=== PATIENT | female | born 1950 | race Caucasian/White ===

== ENCOUNTER 2017-06-12 07:45 | Day surgery (SDC) | payer MEDICARE ==
[~2017-06-12] VITALS: Ht 147.3 cm; Wt 93.2 kg
[~2017-06-12 07:45] MED LIST: ATEN1TAB75 PO; CLON-352 PO; CLOP75 PO; EZET10 PO; HYDR12.56 PO; LIPI80TA16 PO; LISI2.5T3 PO; NITR0.4S SL; POTA-243 PO; RANI150 PO; TYLE500T PO
[2017-06-12 08:21] VITALS: BP 141/76; PULSE 72; RESP 18; TEMP 98.4; O2SAT 96
[2017-06-12] MEDS ORDERED: ATEN50TA PO (08:33)
[2017-06-12] MEDS ORDERED: FURO1TAB60 PO (08:34)
[2017-06-12] MEDS ORDERED: VITA100018 PO (08:34)
[2017-06-12] MEDS ORDERED: ACET-822 PO (08:34)
[2017-06-12] MEDS ORDERED: NITR0.4S SL (08:34)
[2017-06-12] MEDS ORDERED: RANI150C PO (08:34)
[2017-06-12] MEDS ORDERED: CLOP75TA PO (08:34)
[2017-06-12] MEDS ORDERED: CLON0.1T PO (08:34)
[2017-06-12] MEDS ORDERED: POTA1TAB4 PO (08:34)
[2017-06-12] MEDS ORDERED: ISOS30TA3 PO (08:34)
[2017-06-12] MEDS ORDERED: OCUVCAP2 PO (08:34)
[2017-06-12] MEDS ORDERED: ROSU1TAB10 PO (08:34)
[2017-06-12] MEDS ORDERED: EZET1TAB8 PO (08:34)
[2017-06-12] MEDS ORDERED: LISI40TA PO (08:34)
[2017-06-12] MEDS ORDERED: NS 1000P @30 MLS/HR (KVO) IV SCH (09:00)
[2017-06-12] MEDS ORDERED: HEPARIN-NS/PF INJ 500 ML ONE (09:10)
[2017-06-12] MEDS ORDERED: IOHEXOL 350 MG/ML 100 ML BTL (for Cath Lab) OTHER ONE (09:15)
[2017-06-12] MEDS ORDERED: MIDAZOLAM HCL 2 MG/2 ML VIAL ONE (09:32)
[2017-06-12] MEDS ORDERED: NITROGLYCERIN 400 MCG/SPRAY 4.9 GM BOTTLE SL ONE (09:58)
[2017-06-12] MEDS ORDERED: SODIUM CHLOR 0.9% 1000 ML INJ 1,000 ML IV SCH (10:22)
--- NOTE | 2017-06-12 10:23 | CATHPROC ---
[facility] HIS Report Study Information Study Number Admission Scheduled Start Study Start [id number] Jun 12 2017 7:45AM 06/12/2017 Jun 12 2017 9:16AM Study Type Kinde Service Left/Possible PCI Cardiac Catheterization Admit Source Facility Department Other [facility] Supervisor Physician and Clinical Staff Initial Evgeny Armstrong Cat Skinnersarabjit Miller RN, Astrid Raymundo RN Cat SkinnerAndrzej Walls RN Other Paul PETTIT, Jameson Recorder Rebekah Kern,CORRESPONDENCE SECTION SUPERVISOR TECH2 Scrub Kin Cardona,RT(R) Procedures Performed Procedure Location (Site) Vessel Name Angiogram LV AO Arch (A1) Aorta Angiogram LV LV Ventricle Coronary Angiograms LCA Left Coronary Coronary Angiograms RCA Right Coronary Coronary Angiograms MCCLAIN-LAD Left Coronary Coronary Angiograms SVG-DIAG Left Coronary Coronary Angiograms SVG-LCX CIRC Coronary Angiograms Gft. Stump 1 SVG Graft Equipment Time Wholesale Representative Description Size Mfg Part Number Used/Scraped TRANSDUCER, TRUWAVE [id number] 09:41 MCG[employer] ADLER * Used W/STOCKCOCK *[id number] [id number] *[id number] 534-620T *[id number] [id number] *[id number] 534-650S *[id number] 534-650S *[id number] 534-670T *[id number] 09:41 [employer] INDUSTRIES PACK, CCL CUSTOM * Used *[id number] 09:41 [employer] PACER PEN, SKIN DUAL W/ RULER * Used *[id number] 09:41 [employer] MEDICAL SHEATH, FR6.5 PRELUDE 11CM FR 6.5 038ACT Used *[id number] 09:41 [employer] MEDICAL WIRE, 3MMJ .035 180CM 180CM Used *[id number] 09:41 [employer] MANIFOLD, 4 PORT * Used *[id number] 09:41 [employer] OMNIPAQUE, 350 MG, 100ML 100ML [id number] Used 10:04 [employer] OMNIPAQUE, 350 MG, 50ML 50ML [id number] Used [id number] 09:41 [employer],WARM AIR CCL * Used *[id number] History: Current Medications Medication Dosage/Unit Route Frequency Last Date/Time Taken Beta Briseida CLONIDINE PLAVIX VITAMIN D LASIX Imdur K-Dur LISINOPRIL NTG SL CRESTOR ZANTAC History: Allergies Allergy Reaction Aspirin History: Risk Factors Family History of Hypertension Dyslipidemia Previous PR Previous Heart Failure Premature CAD Yes Yes No Yes Yes Prior Valve Prior PCI Prior PCIDate Prior CABG Prior CABGDate Surgery No Yes 07/04/2012 Yes 08/19/1998 Cerebrovascular Peripheral Artery Chronic Lung On Dialysis Diabetes Disease Disease Disease No Yes No No No History: Symptoms/Diagnosis Selection Items Chest pain SOB History: CV Disease Selection Items Known CAD PR History: Stress Tests Stress or Imaging Studies Performed No History: Other Disease Selection Items CAD CHF Gerd History: Other Current Smoker Method No Cigarettes Labs Hgb (g/dl) Hct (%) WBC (l/cumm) Platelets (thousands) 11.60-17.00 35.00-51.00 4.00-11.00 150.00-450.00 9.8 30.7 7.2 211 Glucose (mg/dl) BUN (mg/dl) Creatinine (mg/dl) BUN:Creatinine (1:x) 74.00-106.00 7.00-18.00 0.50-1.30 10.00-20.00 89 14 0.7 20 Na (meq/l) K (meq/l) 136.00-145.00 3.50-5.10 140 4.5 PT (sec) INR (PTT:PT) 9.80-11.60 0.90-1.10 10.7 1.1 CPK-MB (ng/ML) 0.50-3.60 Not Drawn Medication Medication Total Dose (Bolus/Oral) Medication Total Dosage/Unit 1% XYLOCAINE 20 mL NITROGLYCERIN S/L 1.24 mg VERSED 2 mg Medications (Bolus/Oral) Medication Time Given Dosage/Unit Administered By Reason VERSED 06/12/2017 9:36:33 AM 2 mg Andrzej Cali Patient arrived on 2 mg VERSED given by Adnrzej Cali RN in Left Antecubital via Peripheral IV. Ord ered by Evgeny Maria. 1% XYLOCAINE 06/12/2017 9:37:37 AM 20 mL Evgeny Maria Patient arrived on 20 mL 1% XYLOCAINE given by Evgeny Maria in Right Groin via Subcutaneous. Order ed by Evgeny Maria. NITROGLYCERIN S/L 06/12/2017 9:58:36 AM 0.4 mg Andrzej Cali 0.4 mg NITROGLYCERIN S/L given in lab by Andrzej Cali, WILVER via Sublingual. Ordered by Rajendra Maria NITROGLYCERIN S/L 06/12/2017 10:07:42 AM 0.8 mg Andrzej Cali 0.8 mg NITROGLYCERIN S/L given in lab by Andrzej Cali, WILVER via Sublingual. Ordered by Rajendra Maria NITROGLYCERIN S/L 06/12/2017 10:16:00 AM 0.04 mg Andrzej Cali 0.04 mg NITROGLYCERIN S/L given in lab by Andrzej Cali, WILVER via Sublingual. Ordered by Naeem Maria Medication (Drip) Medication Time Given Dosage/Unit Concentration/Unit Diluent (ml) Solution IV Solutions 06/12/2017 9:18:15 AM 0 mL (IV) 500 NaCl .9 Patient arrived on IV Solutions in Left Antecubital via Peripheral IV. Pump/Drip Flow = 20 ml/hr usin g NaCl .9. Initial Case Assessment Cardiovascular HR Rhythm NIBP Chest Pain 70 sr 159/71 0 Circulatory - Right Pulses Dorsalis Pedis Femoral 2 1 Scale (0,1,2,3,4,d) Circulatory - Left Pulses Dorsalis Pedis Femoral 2 1 Scale (0,1,2,3,4,d) Neurological State Oriented to time-place- Alert Moves all extremities person Respiration - General Respiration Rate SpO2 (%) (B/min) 10 97 Final Case Assessment Cardiovascular HR Rhythm NIBP Chest Pain 72 sr 129/67 8 Circulatory - Right Pulses Dorsalis Pedis Femoral 2 1 Scale (0,1,2,3,4,d) Circulatory - Left Pulses Dorsalis Pedis Femoral 2 1 Scale (0,1,2,3,4,d) Neurological State Oriented to time-place- Alert Moves all extremities person Respiration - General Respiration Rate SpO2 (%) (B/min) 16 93 Chronological Log Time Study Chronological Log 9:15:05 Patient arrived via Bed. 9:15:09 Patient Name, D.O.B, / Armband Verified By R.N. 9:16:19 Consent signed by the physician and the patient and verified by the [facility] Department Supervisor staff. 9:16:20 Verbal Stimulation=2 Physical Stimulation=2 Airway=2 Respiration=2 TOTAL=8. (0=absent, 1=boggs ited, 2=present) 9:16:20 Pre-op and post- op instructions given; patient acknowledges understanding of instructions. 9:17:50 Presedation assessment performed by [facility] Department Supervisor RN. 9:17:52 Patient has been NPO for More than 6Hrs. 9:17:54 Skin Breakdown-none 9:17:56 Sanjeev Prominences Protected 9:17:59 A # 20 IV was noted in the Antecubital (left). Grade = patent 9:18:15 Patient arrived on IV Solutions in Left Antecubital via Peripheral IV. Pump/Drip Flow = 20 m l/hr using NaCl .9. 9:18:46 History and physical on the chart or being dictated. Vitals capture started with the following parameters, Patient=Adult, Interval=5 min, Initial Pre ewdqs=039 mmHg, 9:18:48 Deflation Rate=5 mmHg 9:19:26 HR=72 bpm, OZVF=863/71 mmhg, SpO2=97.0 %, Resp=15 B/min, Pain=0, Agustina=10, Lozano=2 Assessment: Initial Case, HR=70 BPM, Rhythm=sr, JDLD=592/71 mmhg, Chest Pain=0 Right Pulses: Morales Ped=2, Femoral=1 9:20:29 Left Pulses: Morales Ped=2, Femoral=1 Neurological: State=Alert, Ox3, BARRERA Respiration: Resp=10 B/min, SpO2=97 % 9:20:50 Reference ECG taken 9:24:26 MD arrived. 9:24:29 HR=68 bpm, GJXP=662/71 mmhg, SpO2=96.0 %, Resp=20 B/min, Agustina=10 9:26:21 Bilateral groins prepped with 2% chlorhexidine, and draped after a 3 min. waiting time. 9:29:28 HR=70 bpm, OTLI=504/72 mmhg, SpO2=96.0 %, Resp=21 B/min 9:32:10 Pressure channel 1 zeroed. 9:34:29 HR=69 bpm, OWNK=215/73 mmhg, SpO2=95.0 %, Resp=19 B/min, Pain=0, Agustina=10, Lozano=2 Patient arrived on 2 mg VERSED given by Andrzej Cali, WILVER in Left Antecubital via Peripheral IV . Ordered by Crow 9:36:33 Evgeny. Time Out. Correct patient, correct procedure,correct physician, power injector not loaded with c ontrast with surgical 9:37:07 team present. Time Out Concurred by MD and individual staff in procedure 9:37:36 Case Start Patient arrived on 20 mL 1% XYLOCAINE given by Evgeny Maria in Right Groin via Subcutaneous. Ordered by 9:37:37 Evgeny Maria. 9:39:30 HR=69 bpm, WPEI=719/64 mmhg, SpO2=93.0 %, Resp=21 B/min, Agustina=10 9:40:28 Access site was Right Femoral Artery. 9:40:34 A SHEATH, FR6.5 PRELUDE 11CM FR 6.5 was advanced into the Fem Art (right) using the Percutan eous technique. A JL 4.0 INFINITI CATHETER FR 6 was advanced over a wire. OMNIPAQUE, 350 MG, 100ML 100ML was use d for 9:41:06 injections. Recorded Pressure: Ao, HR=69, Condition=Condition 1 9:41:48 (Aorta) Ao 116/50/74 9:43:08 The LCA was injected and visualized at various angles. OMNIPAQUE, 350 MG, 100ML 100ML used. 9:44:13 Catheter was removed A JR 4.0 INFINITI CATHETER FR 6 was advanced over a wire. OMNIPAQUE, 350 MG, 100ML 100ML was use d for 9:44:14 injections. 9:44:25 HR=67 bpm, HFNJ=214/55 mmhg, SpO2=92 %, Resp=18 B/min 9:45:11 The RCA was injected and visualized at various angles. OMNIPAQUE, 350 MG, 100ML 100ML used. 9:46:29 The SVG-DIAG was injected and visualized at various angles. OMNIPAQUE, 350 MG, 100ML 100ML u sed. 9:46:58 The Gft. Stump 1 was injected and visualized at various angles. contrast used. 9:47:18 The MCCLAIN-LAD was injected and visualized at various angles. OMNIPAQUE, 350 MG, 100ML 100ML u sed. 9:49:46 Catheter was removed A RCB INFINITI CATHETER FR 6 was advanced over a wire. OMNIPAQUE, 350 MG, 100ML 100ML was used for 9:49:47 injections. 9:50:07 HR=71 bpm, QOSX=598/58 mmhg, SpO2=92 %, Resp=19 B/min 9:52:14 Catheter was removed A 3DRC INFINITI CATHETER FR 6 was advanced over a wire. OMNIPAQUE, 350 MG, 100ML 100ML was used for 9:52:15 injections. 9:53:50 Catheter was removed 9:54:27 HR=71 bpm, CZWQ=279/61 mmhg, SpO2=93.0 %, Resp=18 B/min A JR 4.0 INFINITI CATHETER FR 6 was advanced over a wire. OMNIPAQUE, 350 MG, 100ML 100ML was us ed for 9:57:09 injections. 9:58:30 Patient complaining of chest pain 9:58:36 0.4 mg NITROGLYCERIN S/L given in lab by Andrzej Cali RN via Sublingual. Ordered by Evgeny Hercules ams. 9:59:09 The SVG-LCX was injected and visualized at various angles. OMNIPAQUE, 350 MG, 100ML 100ML us ed. 9:59:26 HR=70 bpm, BZCT=423/56 mmhg, SpO2=92.0 %, Resp=18 B/min 10:02:03 Catheter was removed A PIGTAIL STR INFINITI CATHETER FR 6 was advanced over a wire. OMNIPAQUE, 350 MG, 100ML 100ML w as used for 10:02:06 injections. 10:03:30 The AO Arch (A1) was injected at 12 cc/sec for a total of 40. OMNIPAQUE, 350 MG, 50ML 50ML used. Recorded Pressure: LV, HR=72, Condition=Condition 1 10:04:01 (Left Ventricle) LV 125/9/20 10:04:30 HR=71 bpm, TOFZ=474/52 mmhg, SpO2=90.0 %, Resp=33 B/min 10:05:45 The LV was injected at 12 cc/sec for a total of 30. OMNIPAQUE, 350 MG, 100ML 100ML used. Recorded Pressure: LV, Ao, HR=68, Condition=Condition 1 10:06:12 (Left Ventricle) LV 134/7/17, (Aorta) Ao 128/50/79 10:07:02 Patient complaining of chest pain 10:07:22 Catheter was removed 10:07:42 0.8 mg NITROGLYCERIN S/L given in lab by Andrzej Cali RN via Sublingual. Ordered by Evgeny Hall. 10:09:22 HR=66 bpm, PRED=111/67 mmhg, SpO2=93.0 %, Resp=24 B/min 10:11:23 Case End Assessment: Final Case, HR=72 BPM, Rhythm=sr, JPEA=008/67 mmhg, Chest Pain=8 Right Pulses: Morales Ped=2, Femoral=1 10:13:32 Left Pulses: Morales Ped=2, Femoral=1 Neurological: State=Alert, Ox3, BARRERA Respiration: Resp=16 B/min, SpO2=93 % 10:14:26 HR=71 bpm, SRFU=302/68 mmhg, SpO2=93.0 %, Resp=16 B/min 10:15:14 Sheath(s) left in place, will be removed in Holding Area 10:15:17 Sterile dressing applied to site 10:15:19 No case complications noted. 10:15:23 Cine recording checked. 10:15:28 Bedside Report will be given. 10:16:00 0.04 mg NITROGLYCERIN S/L given in lab by Andrzej Cali RN via Sublingual. Ordered by Evgeny Reno. 10:17:57 Patient moved to bed 10:19:08 Patient transported to DOCU End Study - Contrast Media Used In Study Contrast Total Opened (mL) Total Used (mL) Total Wasted (mL) Omnipaque 175 175 0 End Study - Maximum Contrast Load Max Contrast Load (mL) 665.6 End Study - Radiation Exposure Fluoro Time (minutes) 9.6 End Study - Patient Disposition Complications Transferred To No Telemetry Bed
[2017-06-12] MEDS ORDERED: LORazepam 2 MG/ML VIAL IV PRN (10:30)
[2017-06-12] MEDS ORDERED: SODIUM CHLOR 0.9% 250 ML INJ 250 ML IV PRN (10:30)
[2017-06-12] MEDS ORDERED: MISC INFORMATION XX ONE (10:30)
[2017-06-12] MEDS ORDERED: LIDOCAINE HCL 1% 50 ML VIAL INFIL PRN (10:30)
[2017-06-12] MEDS ORDERED: ATROPINE SULFATE 1 MG/ML VIAL IV PRN (10:30)
[2017-06-12] MEDS ORDERED: ONDANSETRON HCL 4 MG/2 ML VIAL IV PRN (10:30)
[2017-06-12] MEDS ORDERED: BACITRACIN OINT 0.9 GM PKT TOP ONE (11:30)
--- NOTE | 2017-06-12 12:33 | MA ---
cc: MARYELLEN MARTINEZ MD DATE: 06/12/2017 PROCEDURE Cardiac catheterization. PROCEDURAL STATEMENTS The patient was prepped and draped in the usual fashion. A 6 sheath was inserted percutaneously in the right femoral artery. Coronary angiography was done with Kirk preformed catheters. Left ventriculography and aortography was done with a pigtail catheter. RESULTS HEMODYNAMICS Aortic pressure was 125/80. Left ventricular end-diastolic pressure was 10. There is no gradient across the aortic valve. CORONARY ANGIOGRAPHY The left main coronary demonstrated a high-grade stenosis of approximately 85-90%. The left anterior descending artery was totally occluded just after the takeoff of the first septal ob gyn physician assistant complex. A large septal ob gyn physician assistant was present which was widely patent. The circumflex artery descended in the AV groove and demonstrated luminal irregularities but no high-grade stenoses were seen. Collateralization of the distal right coronary was seen from the circumflex system. The right coronary itself was totally occluded, essentially at the aorta. A vein graft to the right coronary was also totally occluded. A vein graft to the first diagonal branch was patent, although a somewhat small graft. The internal mammary artery graft to the LAD was widely patent. AORTOGRAPHY Aortography demonstrated a totally occluded right coronary and right coronary graft, plus 2-3 aortic insufficiency was present. LEFT VENTRICULOGRAPHY Left ventriculography demonstrated inferior wall hypokinesis with preserved left ventricular ejection fraction of 60-65%. +3 mitral regurgitation was seen. CONCLUSIONS The patient demonstrates rather complex valvular disease with high-grade stenosis of the ostial left main. Consultation with the surgical service will be done for possible valve repair or replacement and bypass grafting. This may be complicated in rather poor targets in the right coronary system. Further recommendations after consultation with cardiovascular surgery. MD KARL Hernandez/MITCH /10:30 AM /12:29 PM
[2017-06-12] MEDS ORDERED: CEFAZOLIN INJ 500 MG in SODIUM CHLORIDE 0.9% IRR BTL 500 ML IRRIGATION SCH (14:15)
[2017-06-12] MEDS ORDERED: ceFAZolin 2 GM PREMIX 50 ML IV SCH (14:15)
--- NOTE | 2017-06-12 15:13 | PD.CAR.PN ---
CVT Progress Note Subjective/Hospital Course: sts data discussed with pt RISK SCORES About the STS Risk Calculator Procedure: CAB Only Risk of Mortality: 0.438% Morbidity or Mortality: 8.681% Long Length of Stay: 2.462% Short Length of Stay: 62.565% Permanent Stroke: 0.49% Prolonged Ventilation: 6.045% DSW Infection: 0.45% Renal Failure: 1.168% Reoperation: 3.161% Objective: Vital Signs Date Time Temp Pulse Resp B/P Pulse Ox O2 Delivery O2 Flow Rate FiO2 06/12/17 10:55 96 Room Air 06/12/17 08:21 98.4 72 18 141/76 96 (Lorena Osman) Subjective/Hospital Course: The above STS calculation does not reflect the procedure she needs which is a REDO sternotomy for AVR/CABG. The revised calculation is: RISK SCORES About the STS Risk Calculator Procedure: AV Replacement + CAB Risk of Mortality: 4.944% Morbidity or Mortality: 26.292% Long Length of Stay: 11.277% Short Length of Stay: 21.24% Permanent Stroke: 2.385% Prolonged Ventilation: 20.395% DSW Infection: 0.818% Renal Failure: 6.935% Reoperation: 9.08% (Dahlia Reese MD) Plan: Risk discussed with patient and she agrees to proceed. (Dahlia Reese MD) Lorena Osman Jun 12, 2017 15:13 Dahlia Reese MD Jun 12, 2017 17:44
--- NOTE | 2017-06-12 15:29 | RADRPT ---
EXAM DATE/TIME: 06/12/2017 14:32 [facility] COMPARISON: No previous studies available for comparison. INDICATIONS : Preop cardiac surgery. MEDICAL HISTORY : Hypertension. Thyroid disease. CAD. Hypercholesterol. SURGICAL HISTORY : CABG. Cardiac catheterization. section. ENCOUNTER: Initial ACUITY: 1 day PAIN SCORE: 1/10 LOCATION: Bilateral neck PEAK SYSTOLIC VELOCITIES (cm/sec): ICA/CCA RATIO: Right: 1.1 Left: 1.5 ICA: Right: 123 Left: 123 CCA: Right: 117 Left: 80 ECA: Right: 132 Left: 51 VERTEBRAL: Right: 71 antegrade Left: 90 antegrade Elevated flow velocities and ICA/CCA ratios have been found to correlate with increased degrees of vessel stenosis, calculated as percentage of diameter relative to a normal segment of distal ICA/CCA FINDINGS: RIGHT CAROTID: No significant stenosis is visualized. The waveforms are within normal limits. LEFT CAROTID: No significant stenosis is visualized. The waveforms are within normal limits. VERTEBRAL ARTERIES: Antegrade flow is seen in both vertebral arteries. MISCELLANEOUS: None. CONCLUSION: Normal examination. Scott Jernigan MD on June 12, 2017 at 15:27 Board Certified Radiologist. This report was verified electronically.
--- NOTE | 2017-06-12 15:33 | RADRPT ---
EXAM DATE/TIME: 06/12/2017 14:43 [facility] COMPARISON: No previous studies available for comparison. INDICATIONS : Preop cardiac surgery. MEDICAL HISTORY : Hypertension. Thyroid disease. CAD. Hypercholesterol. SURGICAL HISTORY : section. CABG. Cardiac catheterization. ENCOUNTER: Initial ACUITY: 1 day PAIN SCORE: 2/10 LOCATION: Bilateral leg. TECHNIQUE: Venous ultrasound of the left and right leg was performed from the inguinal ligament to the proximal calf. Real-time, color Doppler and spectral tracing, compression and augmentation techniques were us ed. FINDINGS: RIGHT LEG: There is normal compressibility of the deep venous system from the inguinal region to the proximal ca lf. No echogenic clot is seen in the lumen of the common femoral, femoral, popliteal, and posterior tibial veins. There is a normal response of the venous system to proximal and distal augmentation an d respiration. LEFT LEG: There is normal compressibility of the deep venous system from the inguinal region to the proximal ca lf. No echogenic clot is seen in the lumen of the common femoral, femoral, popliteal, and posterior tibial veins. There is a normal response of the venous system to proximal and distal augmentation an d respiration. CONCLUSION: Normal examination. Scott Jernigan MD on June 12, 2017 at 15:31 Board Certified Radiologist. This report was verified electronically.
--- NOTE | 2017-06-12 16:07 | RADRPT ---
EXAM DATE/TIME: 06/12/2017 14:50 [facility] COMPARISON: No previous studies available for comparison. INDICATIONS : Preop cardiac surgery. MEDICAL HISTORY : Hypertension. Thyroid disease. CAD. Hypercholesterol. SURGICAL HISTORY : CABG. Cardiac catheterization. section. ENCOUNTER: Initial ACUITY: 1 day PAIN SCORE: 3/10 LOCATION: Bilateral leg. GREATER SAPHENOUS VEIN THIGH: PROXIMAL: Right 6 mm Left 6 mm MID: Right 6 mm Left 5 mm DISTAL: Right 4 mm Left 3 mm CALF: PROXIMAL: Right Non-visualized Left Non-visualized MID: Right Non-visualized Left Non-visualized DISTAL: Right Non-visualized Left Non-visualized FINDINGS: The venous system of the lower extremities are patent by color Doppler imaging. Measurements of the leg veins (in mm) are listed above. CONCLUSION: 1. Venous mapping as detailed above. Livan Harris Jr., MD on June 12, 2017 at 15:55 Board Certified Radiologist. This report was verified electronically.
--- NOTE | 2017-06-12 16:31 | RADRPT ---
EXAM DATE/TIME: 06/12/2017 16:09 [facility] COMPARISON: No previous studies available for comparison. INDICATIONS : Evaluate aortic calcifications. RADIATION DOSE: 9.59 CTDIvol (mGy) MEDICAL HISTORY : Cardiovascular disease. Hypertension. SURGICAL HISTORY : CABG ENCOUNTER: Initial ACUITY: 1 day PAIN SCALE: 0/10 LOCATION: chest TECHNIQUE: Volumetric scanning of the chest was performed. Using automated exposure control and adjustment of t he mA and/or kV according to patient size, radiation dose was kept as low as reasonably achievable to obtain optimal diagnostic quality images. DICOM format image data is available electronically for r eview and comparison. Follow-up recommendations for incidentally detected pulmonary nodules are based at a minimum on nodul e size and patient risk factors according to Fleischner Society Guidelines. FINDINGS: LUNGS: There is no consolidation or pneumothorax. No concerning pulmonary nodule is visualized. PLEURAE: There is no pleural thickening or pleural effusion. MEDIASTINUM: The heart and great vessels demonstrate no acute abnormality. There is no mediastinal or hilar lymph adenopathy. Severe atherosclerotic disease of the coronary vessels and the thoracic aorta. Clips cons istent with CABG. AXILLAE: Within normal limits. No lymphadenopathy. MUSCULOSKELETAL: Within normal limits for patient age. MISCELLANEOUS: The visualized upper abdominal organs demonstrate no acute abnormality. CONCLUSION: Severe atherosclerotic disease. Lungs are grossly clear. Scott Jernigan MD on June 12, 2017 at 16:24 Board Certified Radiologist. This report was verified electronically.
--- NOTE | 2017-06-12 17:29 | RADRPT ---
EXAM DATE/TIME: 06/12/2017 17:19 [facility] COMPARISON: No previous studies available for comparison. INDICATIONS : Evaluate for pneumonia, pneumothorax, or communicable disease. Pre op CABG. MEDICAL HISTORY : Myocardial infarction. Stroke. SURGICAL HISTORY : CABG. Coronary artery stent. ENCOUNTER: Initial ACUITY: 1 day PAIN SCORE: 2/10 LOCATION: Bilateral chest FINDINGS: The lungs are clear. Cardiac silhouette is mildly enlarged. Postsurgical changes of prior CABG and co ronary artery stenting. Osseous structures are intact. CONCLUSION: 1. Cardiomegaly. 2. Otherwise, no acute abnormality. Man Manning MD on June 12, 2017 at 17:27 Board Certified Radiologist. This report was verified electronically.
[2017-06-12 18:37] LABS: PROTHROMBIN TIME - PATIENT 11.4 SEC (9.8-11.6)
[2017-06-12 18:42] LABS: ANION GAP 8 MEQ/L (5-15); AST (GOT) 16 U/L (15-37); BICARBONATE 29.2 MEQ/L (21.0-32.0); BLOOD UREA NITROGEN 20 MG/DL (7-18); CHLORIDE 102 MEQ/L (98-107); GLOMERULAR FILTRATION RATE 64 ML/MIN (>89); POTASSIUM 3.5 MEQ/L (3.5-5.1); SODIUM (NA) 139 MEQ/L (136-145)
[2017-06-12 18:43] LABS: ALT (GPT) 26 U/L (10-53)
[2017-06-12 18:45] LABS: ALKALINE PHOSPHATASE 104 U/L (45-117); TOTAL BILIRUBIN ADULT 0.5 MG/DL (0.2-1.0)
[2017-06-12 18:47] LABS: AUTOMATED NEUTROPHIL # 5.4 TH/MM3 (1.8-7.7); BASOPHIL % 0.4 % (0.0-2.0); EOSINOPHIL # 0.1 TH/MM3 (0-0.4); EOSINOPHIL % 1.3 % (0.0-4.0); HEMATOCRIT 33.6 % (35.0-46.0); HEMO FLAGS DIFF FINAL; LYMPH % 17.9 % (9.0-44.0); LYMPHOCYTE # 1.4 TH/MM3 (1.0-4.8); MEAN CELL VOLUME 83.2 FL (80.0-100.0); MEAN CORPUSCULAR HEMOGLOBIN 27.1 PG (27.0-34.0); MEAN CORPUSCULAR HGB CONC 32.5 % (32.0-36.0); MONO % 9.3 % (0.0-8.0); NEUT % 71.1 % (16.0-70.0); PLATELET COUNT 224 TH/MM3 (150-450); RED BLOOD COUNT 4.04 MIL/MM3 (4.00-5.30); RED CELL DISTRIBUTION WIDTH 14.1 % (11.6-17.2); WHITE BLOOD COUNT 7.6 TH/MM3 (4.0-11.0)
[2017-06-12 19:31] LABS: BACTERIA, URINE RARE /hpf; BLOOD, URINE NEG (NEG); COMMENT (UR) CULT NOT INDICATED; CULTURE IF INDICATED CULT NOT INDICATED; GLUCOSE,URINE NEG (NEG); KETONE, URINE NEG (NEG); MUCUS URINE FEW /lpf (OCC); NITRITE,URINE NEG (NEG); SQUAMOUS EPITHELIAL CELL URINE 1 /hpf (0-5); URINE COLOR LIGHT-YELLOW (YELLW/STRAW)
[2017-06-12 22:44] LABS: HEMOGLOBIN A1a 2.7 %; HEMOGLOBIN A1b 1.7 %; HEMOGLOBIN Ao 83.5 %; HEMOGLOBIN LA1C 1.9 %; HEMOGLOBIN P3 4.1 %
--- NOTE | 2017-06-13 08:16 | MB ---
cc: MONY CABRALES DATE OF CONSULTATION: 06/12/2017 1950 HISTORY OF PRESENT ILLNESS A 66-year-old female with history of CHF, coronary artery disease, aortic valve stenosis, also moderate mitral regurgitation, presented to Dr. Maria' office with increased swelling in her lower extremities last week, also some mild nonexertional chest pain. They evaluated her with a chest x-ray, BNP, they added some Lasix orally. PAST MEDICAL HISTORY Her past medical history includes: 1. Coronary artery disease. 2. Hyperlipidemia. 3. Hypertension. 4. She had a CVA in 2013 with no residual valvular heart disease. PAST SURGICAL HISTORY 1. Multiple catheterizations and also stents. 2. Bilateral carotid surgery. 3. She had coronary artery bypass grafting [place] [address] Bales. ALLERGIES The patient is allergic to ASPIRIN. She takes Plavix instead. stented MEDICATIONS Home medications include: 1. Tylenol p.r.n. 2. Lisinopril 40 b.i.d. 3. Atenolol 50 b.i.d. 4. Clonidine 2 mg b.i.d. 5. Zetia 10 p.o. daily. 6. Zantac 150 b.i.d. 7. Crestor 40 daily. 8. Lasix 40. 9. Imdur 30 b.i.d. 10. Nitro p.r.n. 11. Plavix 75 daily. 12. Lasix 40 daily. 13. Potassium 40 b.i.d. FAMILY HISTORY Father of old age at 91. Mother at age 52 from heart disease. SOCIAL HISTORY The patient is , two children. Retired elementary school reading teacher. Remote history of tobacco abuse. No alcohol. REVIEW OF SYSTEMS GENERAL: No night sweats, fever, heat and cold intolerance. SKIN: No psoriasis, itching or hives. HEENT: No blurred vision, hearing loss. RESPIRATORY: Positive for shortness of breath. CARDIOVASCULAR: As above in HPI. GASTROINTESTINAL: No diarrhea, vomiting. GENITOURINARY: No burning, frequency, urgency. PESTICIDE APPLICATOR: Positive for history of prior stroke. ENDOCRINOLOGY: No diabetes or hypothyroidism. PHYSICAL EXAMINATION VITAL SIGNS: Blood pressure 140/70, heart rate of 72, temperature max 98.4. GENERAL: Patient is awake, alert, in no acute distress. HEENT: Head is normocephalic, atraumatic. Pupils are equal and reactive. Oral mucosa pink, moist. NECK: Supple. No JVD. HEART: Heart sounds S1-S2, regular rate and rhythm. Soft systolic murmur grade 2/6 left sternal border. LUNGS: Clear to auscultation. No wheezes, rales or rhonchi. ABDOMEN: Abdomen is soft, nontender. No masses or organomegaly. EXTREMITIES: No cyanosis, clubbing or edema. LABORATORY FINDINGS Shows hemoglobin 9.8, hematocrit of 30, white cell count 7.2, platelet count of 211. She has some normocytic anemia. Sodium of 140, potassium 4.5, BUN 14, creatinine 0.76, INR 1.1, BNP was 297 back on the . RADIOLOGICAL EXAMS Radiological exams are pending including a chest x-ray, carotid ultrasound, leg vein mapping. She did have a 2-D echo that was done in 2012, which at that time the EF was 50-60%. The aortic valve was moderately to severely calcified and she had some mild to moderate mitral valve regurgitation. IMPRESSION This is a 66-year-old female with coronary artery disease, underwent cardiac cath with left main disease 90%, proximal LAD 100%, the OM 100%, the RCA 100%, also aortic valve stenosis. The patient will need a redo coronary artery bypass grafting x2, aortic valve replacement, endoscopic harvesting. Procedures, alternatives and risks have been discussed with the patient. She will return back on the for surgery. In the meantime she will hold her lisinopril 3 days prior to surgery, also Plavix five days prior to surgery. Further workup is still pending. Dictated by: MORA Schmitt MD FARHAT Carrington/MICHAEL /2:31 PM /8:18 AM
== END 2017-06-12 18:35 | disposition home or self-care (01) ==
LOC: HDOC 07:45 → HDIC 07:46 → HDOC 18:35
PROVIDERS: ATTEND Internal Medicine Cardiovascular Disease
DX: R07.9 Chest pain, unspecified (principal); R07.89 Other chest pain; M79.89 Other specified soft tissue disorders; I25.10 Atherosclerotic heart disease of native coronary artery without angina pectoris; I11.0 Hypertensive heart disease with heart failure; I50.9 Heart failure, unspecified; E78.5 Hyperlipidemia, unspecified; I25.2 Old myocardial infarction; I08.0 Rheumatic disorders of both mitral and aortic valves; D64.9 Anemia, unspecified; E07.9 Disorder of thyroid, unspecified; E78.00 Pure hypercholesterolemia, unspecified; Z95.2 Presence of prosthetic heart valve; Z95.5 Presence of coronary angioplasty implant and graft; Z95.1 Presence of aortocoronary bypass graft; Z86.73 Personal history of transient ischemic attack (TIA), and cerebral infarction without residual deficits; Z87.891 Personal history of nicotine dependence; Z01.818 Encounter for other preprocedural examination
CPT/HCPCS: 71020; 71250; 80053; 81001; 83036; 85025; 85610; 86850; 86900; 86901; 87641; 93458; 93567; 93880; 93970; 93998; C1769; C1893; J1644; J2250; J7030; Q9967

== ENCOUNTER 2017-06-20 09:26 | Day surgery (SDC) | payer MEDICARE ==
[~2017-06-20 09:26] MED LIST changes: +ACET-822 PO; -ATEN1TAB75 PO; +ATEN50TA PO; -CLON-352 PO; +CLON0.1T PO; -CLOP75 PO; +CLOP75TA PO; -EZET10 PO; +EZET1TAB8 PO; +FURO1TAB60 PO; -HYDR12.56 PO; +ISOS30TA3 PO; -LIPI80TA16 PO; -LISI2.5T3 PO; +LISI40TA PO; +OCUVCAP2 PO; -POTA-243 PO; +POTA1TAB4 PO; -RANI150 PO; +RANI150C PO; +ROSU1TAB10 PO; -TYLE500T PO; +VITA100018 PO
[2017-06-20] MEDS ORDERED: SODIUM CHLORID 0.9% 500 ML IV PRN (10:15)
[2017-06-20] MEDS ORDERED: POVIDONE IODINE 5% (ANTISEPSIS KIT) 4 APPLICATIONS EACH NARE PRN (10:15)
[2017-06-20] MEDS ORDERED: LACTATED RINGER'S 1000 ML IV PRN (10:15)
[2017-06-20] MEDS ORDERED: INSULIN HUMAN REGULAR 1,000 UNITS/10 ML VIAL SQ PRN (10:15)
[2017-06-20] MEDS ORDERED: CHLORHEXIDINE GLUCONATE 2 % 1 PACK (2 CLOTHS) TOPICAL PRN (10:15)
[2017-06-20] MEDS ORDERED: METOPROLOL TARTRATE 25 MG TAB PO PRN (10:15)
[2017-06-20] MEDS ORDERED: MISCELLANEOUS NURSING INFORMATION XX PRN (12:00)
--- NOTE | 2017-06-20 14:57 | EKG ---
Date Performed: 06/20/2017 Time Performed: 10:16:32 PTAGE: 66 years EKG: Sinus rhythm . Possible inferior infarct - age undetermined Septal and lateral ST-T changes are nonspecific Abnorm al ECG ST changes are slightly more marked. PREVIOUS TRACING : 07/05/2012 06.17 DOCTOR: Tacho Davey Interpretating Date/Time 06/20/2017 14:56:21
--- NOTE | 2017-06-20 16:58 | ECHRPT ---
Indication: Atherosclerosis of coronary artery bypass graft(s), unspecified, with unstable angina pectoris CONCLUSIONS Normal left ventricular size. Mild concentric left ventricular hypertrophy. The left ventricular systolic function is low normal with an estimated ejection fraction in the rang e of 50- 55%. The left atrial size is bcax-ui-uwfvzvrpht dilated. A patent foramen ovale is present with a qbff-nf-mvird shunt demonstrated by color flow Doppler interrogation. Mild thickening of the mitral valve leaflets. Moderate mitral valve regurgitation. Mitral annular calcification is present. No mitral valve stenosis. Trileaflet aortic valve. Aortic valve sclerosis is present. Diffuse calcification of the aortic valve. Eorb-ey-opsehkxd aortic valve regurgitation. Mild to moderate aortic valve stenosis. Aortic valve mean gradient is 20 mmHg. BP: / HR: Rhythm: MEASUREMENTS (Male / Female) Normal Values Technical Quality: 2D ECHO LVOT Diameter 2.1 cm DOPPLER AV Peak Velocity 295.6 cm/s AI Peak Gradient 42.0 mmHg AV Peak Gradient 35.0 mmHg AI Pressure Half Time 1099.0 ms AV Mean Gradient 20.0 mmHg LVOT Peak Velocity 150.0 cm/s AV Velocity Time Integral 72.4 cm LVOT Peak Gradient 9.0 mmHg AI Peak Velocity 324.0 cm/s AV Area Cont Eq pk 1.8 cm Medications Complications There were no complications prior to, during or in recovery from the transesophag eal echocardiogram.. Proc. Components The patient was brought to the diagnostic imaging area in a fasting state after o btaining an informed consent. The patient was premedicated with IV Versed and IV Fentanyl. The finish patcher ior pharynx was sprayed with Cetacaine spray and the patient was administered viscous Xylocaine 2 %. The IONA probe was passed into the posterior pharynx , mid-esophagus, distal esophagus, and gastric fundus. IONA was performed at multiple levels. The patient tolerated the procedure well and there were no complications. The patient was transferred to the floor in satisfactory condition.. FINDINGS LEFT VENTRICLE Normal left ventricular size. Mild concentric left ventricular hypertrophy. The left ventricular systolic function is low normal with an estimated ejection fraction in the rang e of 50- 55%. RIGHT VENTRICLE Normal right ventricular size and systolic function. LEFT ATRIUM The left atrial size is qydj-vg-mgfmygfqbw dilated. RIGHT ATRIUM The right atrial size is normal. ATRIAL APPENDAGES Normal left atrial appendage size with no evidence of thrombus formation. ATRIAL SEPTUM Normal atrial septal thickness. A patent foramen ovale is present with a ufeo-pd-jpfsu shunt demonstrated by color flow Doppler interrogation. AORTA The aortic root and proximal ascending aorta are not well visualized. MITRAL VALVE Mild thickening of the mitral valve leaflets. Moderate mitral valve regurgitation. Mitral annular calcification is present. No mitral valve stenosis. AORTIC VALVE Trileaflet aortic valve. Aortic valve sclerosis is present. Diffuse calcification of the aortic valve. Hbzf-ur-odxyayep aortic valve regurgitation. Mild to moderate aortic valve stenosis. Aortic valve mean gradient is 20 mmHg. TRICUSPID VALVE no tricuspid regurgitation. VESSELS The inferior vena cava is normal in size. PULMONARY VALVE The pulmonary valve is not well visualized. PERICADIUM No pericardial effusion. Scott Sifuentes MD, FACC (Electronically Signed) Final Date:20 June 2017 16:57
[2017-06-24] MEDS ORDERED: ZINC50TA2 PO (09:26)
[2017-06-24] MEDS ORDERED: CALC1TAB87 PO (09:26)
[2017-06-24] MEDS ORDERED: VITA2000 PO (09:26)
[2017-06-24] MEDS ORDERED: MUPI2CRE3 (09:26)
== END 2017-06-20 13:00 | disposition home or self-care (01) ==
LOC: HDIC 09:26 → HDOC 09:26
PROVIDERS: ATTEND Internal Medicine
DX: I25.700 Atherosclerosis of coronary artery bypass graft(s), unspecified, with unstable angina pectoris (principal); I25.110 Atherosclerotic heart disease of native coronary artery with unstable angina pectoris; R94.31 Abnormal electrocardiogram [ECG] [EKG]; I51.7 Cardiomegaly; I08.0 Rheumatic disorders of both mitral and aortic valves
CPT/HCPCS: 93005; 93312; 93320; 93325

== ENCOUNTER 2017-07-01 07:01 | Day surgery (SDC) | payer MEDICARE ==
[~2017-07-01] VITALS: Ht 148.6 cm; Wt 94.0 kg
[~2017-07-01 07:01] MED LIST changes: +CALC1TAB87 PO; +MUPI2CRE3; -VITA100018 PO; +VITA2000 PO; +ZINC50TA2 PO
[2017-07-01 07:41] VITALS: BP 124/65; PULSE 77; RESP 16; O2SAT 97
[2017-07-01] MEDS ORDERED: TYLE325T PO (07:45)
[2017-07-01] MEDS ORDERED: NS 1000P @30 MLS/HR (KVO) IV SCH (08:00)
[2017-07-01] MEDS ORDERED: HEPARIN-NS/PF INJ 500 ML ONE (09:58)
[2017-07-01] MEDS ORDERED: MIDAZOLAM HCL 2 MG/2 ML VIAL ONE (09:58)
[2017-07-01] MEDS ORDERED: HEPARIN SODIUM - IV 10,000 UNITS/10 ML VIAL ONE (10:12)
[2017-07-01] MEDS ORDERED: NITROGLYCERIN 0.4 MG SL 25 TABS/BTL SL ONE (10:49)
[2017-07-01] MEDS ORDERED: SODIUM CHLOR 0.9% 250 ML INJ 250 ML IV PRN (11:30)
[2017-07-01] MEDS ORDERED: LORazepam 2 MG/ML VIAL IV PRN (11:30)
[2017-07-01] MEDS ORDERED: LIDOCAINE HCL 1% 50 ML VIAL INFIL PRN (11:30)
[2017-07-01] MEDS ORDERED: ONDANSETRON HCL 4 MG/2 ML VIAL IV PRN (11:30)
[2017-07-01] MEDS ORDERED: ATROPINE SULFATE 1 MG/ML VIAL IV PRN (11:30)
[2017-07-01] MEDS ORDERED: MISC INFORMATION XX ONE (11:30)
[2017-07-01] MEDS ORDERED: LABETALOL HCL 100 MG/20 ML VIAL ONE (11:38)
[2017-07-01] MEDS ORDERED: BACITRACIN OINT 0.9 GM PKT TOP ONE (12:00)
[2017-07-01] MEDS ORDERED: IOHEXOL 350 MG/ML 100 ML BTL (for Cath Lab) OTHER ONE (16:06)
--- NOTE | 2017-08-12 15:30 | MA ---
cc: MARYELLEN MARTINEZ MD DATE: 07/01/2017 PROCEDURE PTCA. DETAILS OF PROCEDURE The patient was prepped and draped in the usual fashion. A 6 sheath was inserted percutaneously into the right femoral artery. Multiple attempts were made to cannulate the left main coronary artery which had been previously identified as having high-grade stenosis. All of these were unsuccessful. Initially an XB 3.5 was used. Other catheters employed included an XB 4.0 as well as an XB 3.0, a Kirk 4.0 and 4.5, an EBU 3.5 and 4.0, as well as an AL-1. None of these were able to properly cannulate the left main. Attempts were made to pass a wire into the left main without having good seating by the guide catheter and these were also unsuccessful. The attempt was abandoned. The catheters were withdrawn and the groin was sealed with direct pressure. CONCLUSIONS Unsuccessful attempt at PTCA of the left main due to failure to seat guide catheter. MD KARL Hernandez/MITCH /2:09 PM /3:22 PM
== END 2017-07-01 17:46 | disposition home or self-care (01) ==
LOC: HDOC 07:01 → HDIC 07:02 → HDOC 17:46
PROVIDERS: ATTEND Internal Medicine Cardiovascular Disease
DX: I25.119 Atherosclerotic heart disease of native coronary artery with unspecified angina pectoris (principal); I35.0 Nonrheumatic aortic (valve) stenosis; I25.2 Old myocardial infarction; E78.5 Hyperlipidemia, unspecified; G62.9 Polyneuropathy, unspecified; M85.80 Other specified disorders of bone density and structure, unspecified site; M54.16 Radiculopathy, lumbar region; I12.9 Hypertensive chronic kidney disease with stage 1 through stage 4 chronic kidney disease, or unspecified chronic kidney disease; N18.3 Chronic kidney disease, stage 3 (moderate); E55.9 Vitamin D deficiency, unspecified; I70.0 Atherosclerosis of aorta; M51.36 Other intervertebral disc degeneration, lumbar region; E66.01 Morbid (severe) obesity due to excess calories; K21.9 Gastro-esophageal reflux disease without esophagitis; Z68.41 Body mass index [BMI] 40.0-44.9, adult; Z87.891 Personal history of nicotine dependence
CPT/HCPCS: 92920; 93454; C1769; C1887; C1893; J1644; J2250; Q9967